=== PATIENT | female | born 1990 | race African-American/Black ===

== ENCOUNTER 2018-09-28 11:08 | Emergency (ER) | payer OTHER ==
--- NOTE | 2018-09-28 11:19 | ED ---
Influenza-Like Illness - HPI Summary HPI Summary: Patient is a 28 y/o female who presents to the ED c/o N/V/D. 1 week ago she began with cold symptoms, then 2 days ago she began to have runny diarrhea. Patient then began having N/V last night. She now c/o N/V/D, cough, congestion, rhinorrhea, headache due to coughing, diaphoresis, chills, and clogged ears. Patient denies any SOB, abdominal pain, rash, or edema. She rates her current pain as a 4/10 in severity. She did not get this seasons flu vaccine. Patient denies any DM or HTN, however her medical records state otherwise. - History of Current Complaint Chief Complaint: EDFluSymptoms Time Seen by Provider: 09/28/18 11:15 Hx Obtained From: Patient Onset/Duration: Gradual Onset, Lasting Weeks - 1, Still Present Severity: Moderate - 4/10 Associated Signs & Symptoms: Cough, Nasal Congestion, Headache, Vomiting, Diarrhea Related Hx: Possible Flu/Infectious Exposure - did not get this season's flu shot - Allergy/Home Medications Allergies/Adverse Reactions: Allergies Allergy/AdvReac Type Severity Reaction Status Date / Time No Known Allergies Allergy Verified 09/28/18 11:14 Home Medications: Home Medications Venlafaxine ER (NF) [Effexor ER (NF)] 300 mg PO DAILY 09/28/18 [History Confirmed 09/28/18] PMH/Surg Hx/FS Hx/Imm Hx Endocrine/Hematology History: Reports: Hx Diabetes, Hx Thyroid Disease Cardiovascular History: Reports: Hx Hypertension Respiratory History: Reports: Hx Asthma, Hx Chronic Obstructive Pulmonary Disease (COPD) GI History: Reports: Hx Ulcer Psychiatric History: Reports: Hx Anxiety - ON MEDS, Hx Depression - Surgical History Surgery Procedure, Year, and Place: 2009 [facility], [facility] Hx Anesthesia Reactions: No Infectious Disease History: No Infectious Disease History: Denies: Traveled Outside the [place] in Last 30 Days - Family History Known Family History: Negative: Cardiac Disease - Social History Alcohol Use: None Hx Substance Use: No Substance Use Type: Reports: None Hx Tobacco Use: No Smoking Status (MU): Never Smoked Tobacco Have You Smoked in the Last Year: No Review of Systems Positive: Chills, Skin Diaphoresis Positive: Nasal Discharge, Other - congestion, ears plugged Positive: Cough. Negative: Shortness Of Breath Positive: Vomiting, Diarrhea, Nausea. Negative: Abdominal Pain Negative: Edema Negative: Rash Positive: Headache - due to coughing All Other Systems Reviewed And Are Negative: Yes Physical Exam - Summary Physical Exam Summary: Appearance: Well appearing, no pain distress Skin: warm, reflects adequate perfusion, diaphoretic Head/face: normal Eyes: EOMI, JULIETH ENT: mucous membranes moist, clear nasal discharge Neck: supple, non-tender Respiratory: CTA, breath sounds present Cardiovascular: mildly tachycardic but regular rhythm, pulses symmetrical Abdomen: non-tender, soft Bowel Sounds: present Musculoskeletal: normal, strength/ROM intact Neuro: normal, sensory motor intact, A&Ox3 Triage Information Reviewed: Yes Vital Signs On Initial Exam: Initial Vitals Temp Pulse Resp BP Pulse Ox 99.5 F 108 18 119/90 97 09/28/18 11:10 09/28/18 11:10 09/28/18 11:10 09/28/18 11:10 09/28/18 11:10 Vital Signs Reviewed: Yes Diagnostics - Vital Signs Vital Signs Temp Pulse Resp BP Pulse Ox 09/28/18 11:10 99.5 F 108 18 119/90 97 - Laboratory Lab Statement: Any lab studies that have been ordered have been reviewed, and results considered in the medical decision making process. Flu Symptom Course/Dx - Course Course Of Treatment: Nurse's notes reviewed. Patient presents with flulike symptoms outside 48 hour window for treatment of influenza. Likely influenza given the recent incidence of the illness in the area. She was treated symptomatically here and discharged in good condition. - Diagnoses Differential Diagnosis/HQI/PQRI: Positive: Bronchitis, Influenza, Pneumonia, RSV , Upper Respiratory Infection Provider Diagnoses: Influenza-like illness Discharge - Sign-Out/Discharge Documenting (check all that apply): Patient Departure - Discharge Patient Received Moderate/Deep Sedation with Procedure: No - Discharge Plan Condition: Stable Disposition: HOME Prescriptions: guaiFENesin [Mucinex] 600 mg PO BID PRN #20 tab.er.12h PRN Reason: Congestion Ibuprofen TAB* [Motrin TAB* 600 MG] 600 mg PO Q8H PRN #30 tab PRN Reason: pain, fever Loperamide CAP* [Imodium CAP*] 2 mg PO Q4H PRN #20 cap PRN Reason: Diarrhea Ondansetron TAB* [Zofran 4 MG Tab*] 4 mg PO Q6H PRN #10 tab PRN Reason: Nausea Patient Education Materials: Influenza (ED) Forms: *Work Release Referrals: Charly Wiley, [employer] [Primary Care Provider] - Additional Instructions: Drink plenty of fluids. [place] diet as tolerated. Wash your hands to avoid spreading the illness. Return if worse, difficulty breathing, unable to keep down fluids, worse or other concerns. Call Saturday to schedule prompt follow-up with your doctor. - Billing Disposition and Condition Condition: STABLE Disposition: Home - Attestation Statements Document Initiated by Coriibe: Yes Documenting Scribe: Lesa Ordonez Provider For Whom Coriibe is Documenting (Include Credential): Jace Vines MD Scribe Attestation: Lesa Pike scribed for Jace Vines MD on 09/28/18 at 1528. Scribe Documentation Reviewed: Yes Provider Attestation: The documentation as recorded by the Lesa griffith accurately reflects the service I personally performed and the decisions made by Jace johnson MD Status of Scribe Document: Viewed
[2018-09-28] MEDS ORDERED: Ondansetron ODT TAB* 4 MG PO ONE (11:20)
[2018-09-28] MEDS ORDERED: Naproxen TAB* 250 MG PO ONE (11:20)
[2018-09-28 11:38] VITALS: BP 113/87
== END 2018-09-28 11:37 | disposition home or self-care (01) ==
LOC: ED 11:08
DX: R11.2 Nausea with vomiting, unspecified (principal); R19.7 Diarrhea, unspecified; R05 Cough; R09.81 Nasal congestion; J34.89 Other specified disorders of nose and nasal sinuses; E11.9 Type 2 diabetes mellitus without complications; I10 Essential (primary) hypertension; F32.9 Major depressive disorder, single episode, unspecified; F41.9 Anxiety disorder, unspecified
CPT/HCPCS: 99282; A9270-GY

== ENCOUNTER 2019-09-17 13:24 | Emergency (ER) | payer OTHER ==
--- OUTSIDE RECORDS SUMMARY | 2019-09-17 13:51 | XMS REPORT ---
:1990 Author Organization [facility] Care Team Providers Name Role Phone Cari Schuster Primary Care Physician Unavailable Allergies, Adverse Reactions, Alerts Allergy Code CodeSystem Reaction Severity Criticality Status Start Substance Date Moderate Medications Medication Medication Medication Start Stop Route Dose Status Fill Code CodeSystem Date Date Instructions aripiprazole 358530 RxNorm 2019- oral 10 mg completed for 30 03-20 09-17 tablet day(s) venlafaxine 283545 RxNorm 2019- oral 150 mg completed for 30 12-17-17 capsule, day(s) extended release 24hr venlafaxine 348521 RxNorm 2019- oral 150 mg completed for 30 07-16 08-12 capsule, day(s) extended release 24hr aripiprazole 247708 RxNorm 2019- oral 10 mg completed for 30 07-16 06-05 tablet day(s) aripiprazole 130848 RxNorm 2019- oral 10 mg completed for 30 12-17-17 tablet day(s) aripiprazole 723404 RxNorm 2019- oral 10 mg active for 30 03-31 12-16 tablet day(s) venlafaxine 599462 RxNorm 2019- oral 150 mg completed for 30 03-31-07 capsule, day(s) extended release 24hr aripiprazole 712026 RxNorm 2019- oral 10 mg completed for 30 12-17 09-03 tablet day(s) venlafaxine 199717 RxNorm 2018-07 2020- oral 150 mg 2 active Take 2 0-05 capsule, capsule extended every morning release for 30 24hr day(s) every morning Problems Problem Name Code CodeSystem Alternate Alternate Start End Status Narrative Code CodeSystem Date Date Dysthymia 71035012 SNOMED-CT 2019-0 Active 4-09 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-CT 2019 Active phobia, 3-22 unspecified Relevant diagnostic tests/laboratory data Narrative No Information Procedures Procedure Code CodeSystem Target Date of Status Service Device Device Device Name Site Procedure Delivery Code Name UID Location Psychotherap 108327 SNOMED-CT () 2019-02-24 complete Mental y, 46 04 d Health- minutes with [place] patient [address], [id number] [id number] Psychotherap 907000 SNOMED-CT () 2019-04-07 complete Mental y, 45 04 d Health- minutes with [place] patient [address], [phone] [id number] Office [place] [id number] SNOMED-CT () 2019-03-31 complete Mental other 7 d Health- outpatient [place] visit for [address] [id number] patient, [phone] which requires at least 2 of these 3 harris components: An expanded problem focused history; An expanded problem focused examination; Medical decision making of low Office or 079346 SNOMED-CT () 2019-06-30 complete Mental other 6 d Health- outpatient [place] visit for [address] [phone] patient, [phone] which requires at least 2 of these 3 harris components: A problem focused history; A problem focused examination; Straightforw juan medical decision making. Counselin Office or 387607 SNOMED-CT () 2018-11-28 complete Mental other 6 d Health- outpatient [place] visit for [address], established [phone] patient, [phone] which requires at least 2 of these 3 harris components: A problem focused history; A problem focused examination; Straightforw juan medical decision making. Counselin Encounters/Encounter Diagnoses Encounter Name Encounter Diagnosis Diagnosis Diagnosis Date of Service Code Code Name CodeSystem Diagnosis Delivery Location - 33150 [id number] Dysthymia SNOMED-CT 2019-06-30 Behavioral Established Health patient [facility] [address] [place], [place], [phone] Vital Signs No Information Social History Element Description Description Start End Code CodeSystem AdditionalInfo Date Date SexAssignedAtBirth Female 1991-0 F AdministrativeGender 08-12 Hospital Discharge Instructions Reason For Referral Medical Equipment FDA Assessments
[2019-09-17 15:12] LABS: Influenza A Molecular Negative (Negative); Influenza B Molecular Negative (Negative)
--- NOTE | 2019-09-17 15:30 | ED ---
Influenza-Like Illness - HPI Summary HPI Summary: patient is a 29 year female who presents emergency department for nausea, diarrhea, chills, cough. Patient notes cough with ongoing for about 2 weeks and GI symptoms started a few days ago. No past medical history. 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 Denies abdominal pain, dysuria, fever. Symptoms are mild in severity. No current modifying factors. - History of Current Complaint Chief Complaint: EDFluSymptoms Time Seen by Provider: 09/17/19 14:01 Hx Obtained From: Patient - Allergy/Home Medications Allergies/Adverse Reactions: Allergies Allergy/AdvReac Type Severity Reaction Status Date / Time No Known Allergies Allergy Verified 09/17/19 13:45 Home Medications: Home Medications ARIPiprazole TAB* [Abilify TAB*] 10 mg PO DAILY 07/06/15 [History Confirmed ] Levonorgestrel (IUD) (NF) [Mirena (NF)] 1 applic .ROUTE SEE INSTRUCTIONS [History Confirmed 09/28/18] Ibuprofen TAB* [Motrin TAB* 600 MG] 600 mg PO Q8H PRN #30 tab 09/28/18 [Rx] Loperamide CAP* [Imodium CAP*] 2 mg PO Q4H PRN #20 cap 09/28/18 [Rx] Ondansetron TAB* [Zofran 4 MG Tab*] 4 mg PO Q6H PRN #10 tab 09/28/18 [Rx] Venlafaxine ER (NF) [Effexor ER (NF)] 300 mg PO DAILY 09/28/18 [History Confirmed 09/28/18] guaiFENesin [Mucinex] 600 mg PO BID PRN #20 tab.er.12h 09/28/18 [Rx] PMH/Surg Hx/FS Hx/Imm Hx Previously Healthy: Yes Endocrine/Hematology History: Reports: Hx Diabetes, Hx Thyroid Disease Cardiovascular History: Reports: Hx Hypertension Respiratory History: Reports: Hx Asthma, Hx Chronic Obstructive Pulmonary Disease (COPD) GI History: Reports: Hx Ulcer Psychiatric History: Reports: Hx Anxiety - ON MEDS, Hx Depression - Surgical History Surgery Procedure, Year, and Place: 2008 [facility], [facility] Hx Anesthesia Reactions: No Infectious Disease History: No Infectious Disease History: Denies: Traveled Outside the [place] in Last 30 Days - Family History Known Family History: Positive: Non-Contributory Negative: Cardiac Disease - Social History Occupation: Employed Full-time Lives: With Family Alcohol Use: None Hx Substance Use: No Substance Use Type: Reports: None Hx Tobacco Use: No Smoking Status (MU): Never Smoked Tobacco Have You Smoked in the Last Year: No Review of Systems Positive: Fever, Chills ENT: Negative Cardiovascular: Negative Positive: Cough. Negative: Shortness Of Breath Positive: Diarrhea, Nausea. Negative: Abdominal Pain, Vomiting Genitourinary: Negative Negative: dysuria Skin: Negative Negative: Rash Positive: Headache All Other Systems Reviewed And Are Negative: Yes Physical Exam Triage Information Reviewed: Yes Vital Signs On Initial Exam: Initial Vitals Temp Pulse Resp BP Pulse Ox 97.6 F 90 16 129/85 99 09/17/19 13:42 09/17/19 13:42 09/17/19 13:42 09/17/19 13:42 09/17/19 13:42 Vital Signs Reviewed: Yes Appearance: Positive: Well-Appearing - Patient lying in bed in no acute distress. Skin: Positive: Warm, Dry Head/Face: Positive: Normal Head/Face Inspection Eyes: Positive: Normal, EOMI, JULIETH ENT: Positive: Pharynx normal, TMs normal Neck: Positive: Supple Respiratory/Lung Sounds: Positive: Other - good breath sounds throughout with mild rhonchi in the right lower lung. Cardiovascular: Positive: Normal, RRR Abdomen Description: Positive: Nontender, Soft Neurological: Positive: Normal, CN Intact II-III Psychiatric: Positive: Affect/Mood Appropriate Procedures - Sedation Patient Received Moderate/Deep Sedation with Procedure: No Diagnostics - Vital Signs Vital Signs Temp Pulse Resp BP Pulse Ox 09/17/19 13:42 97.6 F 90 16 129/85 99 - Laboratory Lab Results: Lab Results 09/17/19 Range/Units 14:47 Influenza A (Rapid) Negative (Negative) Influenza B (Rapid) Negative (Negative) Lab Statement: Any lab studies that have been ordered have been reviewed, and results considered in the medical decision making process. Flu Symptom Course/Dx - Course Course Of Treatment: Patient above symptoms. Afebrile well-appearing. Given ongoing cough and rhonchi on exam chest x-ray obtained to rule out pneumonia. Negative influenza. Chest x-ray negative for acute findings per radiology. Patient tolerating by mouth fluids. Suspect viral etiology. Follow-up with PCP if symptoms persist return to the ER if symptoms change or worsen. Discussed supportive care. Patient understands and agrees with plan. - Diagnoses Differential Diagnosis/HQI/PQRI: Positive: Influenza, Pneumonia, Upper Respiratory Infection Provider Diagnoses: Viral syndrome Discharge ED - Sign-Out/Discharge Documenting (check all that apply): Patient Departure - Discharge Plan Condition: Good Disposition: HOME Patient Education Materials: Viral Syndrome (ED) Forms: *Work Release Referrals: [facility] [Outside] Additional Instructions: Follow up with the [facility] if symptoms persist Increase fluids and rest Tylenol or Motrin for pain as directed Return to ER if symptoms change or worsen - Billing Disposition and Condition Condition: GOOD Disposition: Home - Attestation Statements Provider Attestation: pt seen by midlevel provider independently, based on their assessment, it was not necessary to present the case to me but I was available for consultation. I did not form a physician-patient relationship with the patient. The chart however, has been reviewed. am signing this note strictly in an administrative capacity.
[2019-09-17 15:51] VITALS: BP 133/86
== END 2019-09-17 15:48 | disposition home or self-care (01) ==
LOC: ED 13:24
DX: B34.9 Viral infection, unspecified (principal); R50.9 Fever, unspecified; R05 Cough; R19.7 Diarrhea, unspecified; R11.0 Nausea; E11.9 Type 2 diabetes mellitus without complications; I10 Essential (primary) hypertension; R42 Dizziness and giddiness; F41.9 Anxiety disorder, unspecified; R51 Headache; Z97.5 Presence of (intrauterine) contraceptive device; Z79.899 Other long term (current) drug therapy
CPT/HCPCS: 71046; 99281